=== PATIENT | female | born 1950 | race Two or more races ===

== ENCOUNTER 2017-05-11 12:08 | Outpatient (CLI) | payer OTHER | END 2017-05-11 13:35 | disposition home or self-care (01) | LOC: MAMO-SONO 12:08 | DX: Z12.31 Encounter for screening mammogram for malignant neoplasm of breast (principal); Z87.898 Personal history of other specified conditions; N60.11 Diffuse cystic mastopathy of right breast; N60.12 Diffuse cystic mastopathy of left breast ==

== ENCOUNTER → 2017-08-01 | Outpatient (CLI) | payer OTHER | END | disposition home or self-care (01) | LOC: TOM 07:45 | DX: Z12.11 Encounter for screening for malignant neoplasm of colon (principal); N28.1 Cyst of kidney, acquired; N20.0 Calculus of kidney ==

== ENCOUNTER 2018-04-21 13:33 | Inpatient (IN) | payer OTHER ==
[~2018-04-21] VITALS: Ht 170.2 cm; Wt 86.2 kg
[2018-04-21] MEDS ORDERED: SYNTHROID75 MCG PO (14:37)
[2018-04-21] MEDS ORDERED: SYNTHROID88 MCG PO (14:37)
[2018-04-21] MEDS ORDERED: LISINOPRIL10 MG PO (14:37)
[2018-04-21] MEDS ORDERED: ATORVASTATIN CA40 MG PO (14:37)
--- NOTE | 2018-04-21 14:40 | NUR ---
SE RECIBE PTE ALERTA Y ORIENTADA X3, PTE REFIERE QUE DESDE HACE 2 JENNINGS SE ENCUENTRA CON DOLOR ABDOMINAL. PTE INDICA QUE PADECE DE DIVERTICULOS Y LANZA GASTROENTEROLOGO DR.RICKY ACOSTA.
[2018-04-25] MEDS ORDERED: CIPRO500 MG PO (09:18)
[2018-04-25] MEDS ORDERED: FLAGYL500MG PO (09:18)
[2018-04-25] MEDS ORDERED: Intestinex CAP PO (09:18)
== END 2018-04-25 09:46 | disposition home or self-care (01) | DRG 392 ==
LOC: ER 13:33 → SURH 23:01 → MEDJ 23:01 → SURH 04-22 02:08
PROVIDERS: ADMIT Internal Medicine
PROC: BW21ZZZ Computerized Tomography (CT Scan) of Abdomen and Pelvis (ICD-10-PCS; principal; 2018-04-21)
DX: K57.32 Diverticulitis of large intestine without perforation or abscess without bleeding (principal); E03.9 Hypothyroidism, unspecified; E78.5 Hyperlipidemia, unspecified; I10 Essential (primary) hypertension; E55.9 Vitamin D deficiency, unspecified

== ENCOUNTER 2018-07-24 07:30 | Inpatient (IN) | payer OTHER ==
[~2018-07-24] VITALS: Ht 170.2 cm; Wt 84.4 kg
[~2018-07-24 07:30] MED LIST: ATORVASTATIN CA40 MG PO; CIPRO500 MG PO; FLAGYL500MG PO; Intestinex CAP PO; LISINOPRIL10 MG PO; SYNTHROID75 MCG PO; SYNTHROID88 MCG PO
[2018-07-24] MEDS ORDERED: CALCI-CHEW500 MG PO (09:08)
[2018-07-24] MEDS ORDERED: ASA81 MG PO (09:08)
== END 2018-08-18 12:01 | disposition home or self-care (01) | DRG 329 ==
LOC: O/R 07-28 06:10 → SURH 07-28 06:10
PROVIDERS: ADMIT Colon & Rectal Surgery
PROC: 0DJD8ZZ Inspection of Lower Intestinal Tract, Via Natural or Artificial Opening Endoscopic (ICD-10-PCS; 2018-07-28)
PROC: 0DTN4ZZ Resection of Sigmoid Colon, Percutaneous Endoscopic Approach (ICD-10-PCS; principal; 2018-07-28 07:00)
PROC: 30233N1 Transfusion of Nonautologous Red Blood Cells into Peripheral Vein, Percutaneous Approach (ICD-10-PCS; 2018-07-30)
PROC: B246ZZZ Ultrasonography of Right and Left Heart (ICD-10-PCS; 2018-07-31)
PROC: BW24ZZZ Computerized Tomography (CT Scan) of Chest and Abdomen (ICD-10-PCS; 2018-07-31)
PROC: BW21ZZZ Computerized Tomography (CT Scan) of Abdomen and Pelvis (ICD-10-PCS; 2018-07-31)
PROC: 4A033R1 Measurement of Arterial Saturation, Peripheral, Percutaneous Approach (ICD-10-PCS; 2018-07-31)
PROC: 3E0F7GC Introduction of Other Therapeutic Substance into Respiratory Tract, Via Natural or Artificial Opening (ICD-10-PCS; 2018-07-31)
PROC: 02HV33Z Insertion of Infusion Device into Superior Vena Cava, Percutaneous Approach (ICD-10-PCS; 2018-08-03)
PROC: 0J9C30Z Drainage of Pelvic Region Subcutaneous Tissue and Fascia with Drainage Device, Percutaneous Approach (ICD-10-PCS; 2018-08-07)
PROC: 0J9C30Z Drainage of Pelvic Region Subcutaneous Tissue and Fascia with Drainage Device, Percutaneous Approach (ICD-10-PCS; 2018-08-16)
DX: K57.32 Diverticulitis of large intestine without perforation or abscess without bleeding (principal); J15.7 Pneumonia due to Mycoplasma pneumoniae; K91.870 Postprocedural hematoma of a digestive system organ or structure following a digestive system procedure; J95.89 Other postprocedural complications and disorders of respiratory system, not elsewhere classified; D62 Acute posthemorrhagic anemia; T81.43XA Infection following a procedure, organ and space surgical site, initial encounter; N39.0 Urinary tract infection, site not specified; N73.8 Other specified female pelvic inflammatory diseases; B96.29 Other Escherichia coli [E. coli] as the cause of diseases classified elsewhere; B96.6 Bacteroides fragilis [B. fragilis] as the cause of diseases classified elsewhere; B96.7 Clostridium perfringens [C. perfringens] as the cause of diseases classified elsewhere; B95.2 Enterococcus as the cause of diseases classified elsewhere; R09.02 Hypoxemia; K59.09 Other constipation; I10 Essential (primary) hypertension; E78.49 Other hyperlipidemia; E03.8 Other specified hypothyroidism; Z99.81 Dependence on supplemental oxygen

== ENCOUNTER 2018-09-21 07:08 | Outpatient (CLI) | payer OTHER ==
[~2018-09-21 07:08] MED LIST changes: +ASA81 MG PO; +CALCI-CHEW500 MG PO
== END 2018-09-21 07:18 | disposition home or self-care (01) ==
LOC: TOM 07:08
DX: K63.2 Fistula of intestine (principal)

== ENCOUNTER 2018-10-04 08:15 | Day surgery (SDC) | payer OTHER | END 2018-10-04 13:00 | disposition home or self-care (01) | LOC: AMB-ENDOS 08:15 | DX: D12.0 Benign neoplasm of cecum (principal); K63.5 Polyp of colon; K62.1 Rectal polyp; K64.8 Other hemorrhoids ==

== ENCOUNTER 2019-01-25 10:27 | Outpatient (CLI) | payer OTHER | END 2019-01-25 11:06 | disposition home or self-care (01) | LOC: MAMO-SONO 10:27 | DX: Z12.31 Encounter for screening mammogram for malignant neoplasm of breast (principal); Z87.898 Personal history of other specified conditions; N64.89 Other specified disorders of breast; N64.59 Other signs and symptoms in breast; N63.10 Unspecified lump in the right breast, unspecified quadrant; N63.20 Unspecified lump in the left breast, unspecified quadrant ==

== ENCOUNTER 2021-01-15 09:34 | Outpatient (CLI) | payer OTHER | END 2021-01-15 09:47 | disposition home or self-care (01) | LOC: MAMO-SONO 09:34 | PROVIDERS: ATTEND Specialist | DX: R92.0 Mammographic microcalcification found on diagnostic imaging of breast (principal); Z12.31 Encounter for screening mammogram for malignant neoplasm of breast ==

== ENCOUNTER 2023-11-28 07:50 | Outpatient (CLI) | payer OTHER ==
[~2023-11-28 07:50] MED LIST changes: +ELIQUIS5 M1 PO; +FLUOROMETHOLONE5 ML OP; +HORIZANT300 MG PO; +KETOROLAC TROMET5 M1 OP; +MELOXICAM15 MG PO; +METOPROLOL SUC100 MG PO; +PROTONIX40 M1 PO; +SYNTHROID50 MCG PO; +ZESTRIL5 MG PO; +ZOLOFT50 MG PO
== END 2023-11-28 08:00 | disposition home or self-care (01) ==
LOC: TOM 07:50
PROVIDERS: ATTEND Internal Medicine Gastroenterology
DX: K57.30 Diverticulosis of large intestine without perforation or abscess without bleeding (principal); D46.4 Refractory anemia, unspecified; Z12.11 Encounter for screening for malignant neoplasm of colon